=== PATIENT | male | born 1945 | race Caucasian/White ===

== ENCOUNTER 2017-01-11 19:38 | Inpatient (IN) ==
[2017-01-11] MEDS ORDERED: Ondansetron 4 MG/2 ML VIAL IVP ONE (19:50)
--- NOTE | 2017-01-11 19:56 | Emergency Department Note ---
Disposition Clinical Impression: Arm weakness Headache Qualifiers: Headache type: unspecified Headache chronicity pattern: acute headache Intractability: not intractable Qualified Code(s): R51 - Headache Disposition: Admitted As Inpatient Condition: Fair Neuro HPI - General Chief Complaint: ED Headache Stated Complaint: R arm weakness, HAUSER Time Seen by Provider: 01/11/17 19:41 Source: patient, family, EMS Mode of arrival: EMS Limitations: no limitations Nursing Notes Reviewed: Yes Vital Signs Reviewed: Yes - History of Present Illness HPI Narrative: 71-year-old male history of hypertension and possible strokes in the past present for evaluation of sudden onset headache and right arm weakness. Patient states that his last known well was approximately 4:30 or 5:00 this evening. Patient denies history of headaches in the past but does note that his headache occurred nonexertional. That is to be located in the back of his head. states that he did have some slurred speech. Patient notes some decreased sensation in his left lower leg to soft touch. Reports some dyspnea but no chest pain. Reports some nausea but no vomiting. states that the patient did have Motrin prior to arrival. Patient denies any weakness of his lower legs. Does note weakness in his right arm. Denies being on any anticoagulation. Denies any recent surgeries. Patient denies any history of headaches. [facility] [place] as well as [facility]. - Related Data Home Medications: Home Medications Medication Instructions Recorded Confirmed Brimonidine 0.2% [Alphagan] 1 drop RIGHT EYE TID 01/11/17 01/11/17 Carboxymethylcellulose Sodium 1 drop BOTH EYES QID PRN 01/11/17 01/11/17 [Refresh Liquigel] Cholecalciferol (D-3) [Vitamin D] 2,000 unit PO DAILY 01/11/17 01/11/17 Cyclobenzaprine HCl 5 mg PO HS PRN 01/11/17 01/11/17 Doxycycline Monohydrate [Mondoxyne 100 mg PO BID 01/11/17 01/11/17 Nl] Fluorouracil [Fluoroplex] 1 appl TP BID 01/11/17 01/11/17 Hydrocortisone 2.5% CREAM [Cortaid] 1 appl TP BID 01/11/17 01/11/17 Ketotifen Fumarate [Zaditor] 1 drop BOTH EYES BID 01/11/17 01/11/17 Lisinopril [Zestril] 10 mg PO DAILY 01/11/17 01/11/17 Naproxen [Naprosyn] 500 mg PO BID PRN 01/11/17 01/11/17 Neomycin Nagy/Bacitrac Zn/Poly 1 appl TP BID 01/11/17 01/11/17 [Triple Antibiotic Ointment] Quetiapine Fumarate [SEROquel] 75 mg PO HS 01/11/17 01/11/17 Vit C/E/Zn/Coppr/Lutein/Zeaxan 1 cap PO BIDWM 01/11/17 01/11/17 [Preservision Areds 2 Softgel] predniSONE [PredniSONE] See Taper PO TAPER 01/11/17 01/11/17 Allergies/Adverse Reactions: Allergies Allergy/AdvReac Type Severity Reaction Status Date / Time allopurinol Allergy Hives Verified 01/11/17 19:41 atenolol Allergy Hives Verified 01/11/17 19:41 All systems ED: reviewed and negative except as stated. Constitutional: Reports: as per HPI. Denies: fever Eyes: Reports: as per HPI ENT ED: Reports: as per HPI Cardiovascular: Reports: as per HPI. Denies: chest pain Respiratory: Reports: as per HPI. Denies: dyspnea Gastrointestinal: Reports: as per HPI, nausea. Denies: abdominal pain, vomiting Genitourinary: Reports: as per HPI Musculoskeletal: Reports: as per HPI Integumentary: Reports: as per HPI Neurological: Reports: as per HPI, headache Psychiatric: Reports: as per HPI Endocrine: Reports: as per HPI Hematological/Lymphatic: Reports: as per HPI Allergic/Immunologic: Reports: as per HPI Past Medical History - Past Medical History Medical history: Reports: hypertension Psychiatric history: Reports: PTSD, other - Social History Smoking Status: Former smoker Smokeless Tobacco Status: No Alcohol use: Reports: none Drug use: Reports: none Physical Exam - General Limitations: no limitations General appearance: alert, in no apparent distress - Head Head exam: atraumatic, normocephalic, normal inspection - Eye Eye exam: Present: normal appearance, PERRL, EOMI - ENT ENT exam: normal exam - Neck Neck exam: Present: normal inspection - Chest Chest inspection: Present: normal inspection, symmetric chest wall rise - Respiratory Respiratory exam: Present: normal lung sounds bilaterally. Absent: respiratory distress - Cardiovascular Cardiovascular exam: Present: regular rate, normal rhythm. Absent: systolic murmur - Abdominal Exam Abdominal exam: Present: soft, Non-Tender - Extremities Exam Extremities exam: Present: normal inspection. Absent: pedal edema - Expanded Upper Extremity Exam Shoulder exam: Present: normal inspection, full ROM Arm exam: Present: normal inspection, full ROM Forearm/Wrist exam: Present: normal inspection, full ROM Vascular exam: Normal: capillary refill, radial pulse - Expanded Lower Extremity Exam Hip/Pelvis exam: Present: normal inspection, full ROM Upper leg exam: Present: normal inspection, full ROM Knee exam: Present: normal inspection, full ROM - Back Exam Back exam: Present: normal inspection - Neurological Exam Neurological exam: Present: alert, oriented X3, CN II-XII intact - Expanded Neurological Exam Patient oriented to: Present: person, place, time Speech: Present: fluid speech Cranial nerves: EOM function (II, III, IV, ): Normal, facial sensation (V): Normal, facial palsy (VII): Normal, spinal accessory function (XI): Normal, tongue deviation (XII): Normal Cerebellar function: finger to nose: Normal, heel to robin: Normal Motor strength - LUE: 5/5 Motor strength - RUE: 4/5 Motor strength - LLE: 5/5 Motor strength - RLE: 5/5 Upper motor neuron exam: pronator drift: Absent bilaterally Sensory exam upper extremity: light touch: Normal Sensory exam lower extremity: light touch: Abnormal Left Coma Scale Eye Opening: Spontaneous Coma Scale Motor Response: Obeys Commands Coma Scale Verbal Response: Oriented Coma Scale Total: 15 - Skin Skin exam: Present: warm, dry, intact, normal color Course Course Narrative: Patient seen and examined. Patient's time of onset was approximately 4:30 or 5: 00 when he was last well. Patient did have a sudden onset of headache. Patient denies history of aneurysms but supposedly had subclinical CVAs in the past. Patient initial concern is subarachnoid hemorrhage are sudden onset. Patient's blood pressure systolic is 150s. Stroke alert was activated given time of onset and concerns for subarachnoid. Patient does have an age of 1 with subjective decreased sensory loss in his left leg. Patient also has asymmetric right upper extremity weakness. Disposition pending. - Consultations Consultation #1: Spoke with [facility] neurology. Continue workup for possible subarachnoid. CTA of the head. Patient is not a thrombolytic candidate agreeable by the Neurologist if there is concern for SAH. Also the patient NIH of 1. Time: 20:35 Vital Signs Temperature 98.1 F 01/11/17 19:42 Pulse Rate 96 01/11/17 19:42 Respiratory Rate 18 01/11/17 19:42 Blood Pressure 157/94 01/11/17 19:42 O2 Sat by Pulse Oximetry 95 01/11/17 19:42 Temperature 98.1 F 01/11/17 20:37 Pulse Rate 93 01/11/17 20:48 Respiratory Rate 16 01/11/17 20:48 Blood Pressure 137/90 01/11/17 20:48 O2 Sat by Pulse Oximetry 95 01/11/17 20:48 Oxygen Delivery Oxygen Delivery Room Air Neuro Symptoms/Deficit - MDM Narrative Medical decision making narrative: 71-year-old male with history of hypertension and remote strokes in the past presents for evaluation of headache as well as right arm weakness. Patient does have asymmetric right arm weakness and patient is right-hand dominant. Stroke alert was activated as there was concerns for subarachnoid. Time of onset was approximately 4:30 this evening. Notes to be a sudden onset of a headache. This is within a 6 hour time window. Patient also had some right arm weakness. CT of the head shows no acute abnormalities. Notes old infarcts. Patient's NIH is 1. NIH given to subjective left-sided sensory loss to soft touch. Patient does have a history of sciatic on the left leg as well. Spoke with [facility] neurology who agree that thrombolytics are not indicated if there is any concerns for subarachnoid. Given the patient's low NIH score. Recommend further neuro evaluation. This information was discussed with the patient bedside who agree with plan of care. Patient's blood pressure did improve from initial evaluation. Aspirin was not provided as there was concern for possible subarachnoid. Patient is agreeable with this plan of care. Spoke with the family as well as the hospitalist. - Lab Data Lab results reviewed: Yes I reviewed the patient's lab results. Result diagrams: 01/11/17 19:19 01/11/17 19:19 Lab Results 01/11/17 01/11/17 01/11/17 Range/Units 19:19 19:19 19:19 WBC 13.7 H (4.3-11.1) K/mcL RBC 5.66 H (4.19-5.50) M/mcL Hgb 16.2 (12.9-16.9) g/dL Hct 48.8 (37.5-50.1) % MCV 86.2 (83.0-100.0) fL MCH 28.6 (28.0-33.3) pg MCHC 33.2 (31.6-35.5) g/dL RDW 13.1 (11.5-14.5) % Plt Count 263 (140-400) K/mcL MPV 10.0 (9.4-12.4) fL Immature Gran % 0.4 (0-4) % Seg Neutrophils % 91.4 % Lymphocytes % 5.3 % Monocytes % 2.8 % Eosinophils % 0.0 % Basophils % 0.1 % Neutrophils # 12.5 H (1.6-8.9) K/mcL Lymphocytes # 0.7 (0.6-4.6) K/mcL Monocytes # 0.4 (0.0-1.3) K/mcL Eosinophils # 0.0 (0.0-0.6) K/mcL Basophils # 0.0 (0.0-0.2) K/mcL PT 13.2 H (9.4-12.1) Seconds INR 1.2 APTT 32.3 (26.0-36.0) Seconds Sodium 136 (136-145) mEq/L Potassium 4.4 (3.5-4.5) mEq/L Chloride 105 (98-109) mEq/L Carbon Dioxide 23 (19-29) mEq/L BUN 24 (8-26) mg/dL Creatinine 1.24 (0.72-1.25) mg/dL Est GFR ( Amer) > 60 (> 60) Est GFR (Non-Af Amer) 57 L (> 60) BUN/Creatinine Ratio 19 (6-26) Glucose 198 H (70-99) mg/dL Calculated Osmolality 292 (280-300) Calcium 9.6 (8.6-10.8) mg/dL Troponin I (0-0.03) ng/mL 01/11/17 Range/Units 19:19 WBC (4.3-11.1) K/mcL RBC (4.19-5.50) M/mcL Hgb (12.9-16.9) g/dL Hct (37.5-50.1) % MCV (83.0-100.0) fL MCH (28.0-33.3) pg MCHC (31.6-35.5) g/dL RDW (11.5-14.5) % Plt Count (140-400) K/mcL MPV (9.4-12.4) fL Immature Gran % (0-4) % Seg Neutrophils % % Lymphocytes % % Monocytes % % Eosinophils % % Basophils % % Neutrophils # (1.6-8.9) K/mcL Lymphocytes # (0.6-4.6) K/mcL Monocytes # (0.0-1.3) K/mcL Eosinophils # (0.0-0.6) K/mcL Basophils # (0.0-0.2) K/mcL PT (9.4-12.1) Seconds INR APTT (26.0-36.0) Seconds Sodium (136-145) mEq/L Potassium (3.5-4.5) mEq/L Chloride (98-109) mEq/L Carbon Dioxide (19-29) mEq/L BUN (8-26) mg/dL Creatinine (0.72-1.25) mg/dL Est GFR ( Amer) (> 60) Est GFR (Non-Af Amer) (> 60) BUN/Creatinine Ratio (6-26) Glucose (70-99) mg/dL Calculated Osmolality (280-300) Calcium (8.6-10.8) mg/dL Troponin I 0.00 (0-0.03) ng/mL - Radiology Data Radiology results reviewed: Yes I reviewed the patient's radiology results. Chest X-Ray 01/11/17 19:50 IMPRESSION: No acute cardiopulmonary disease. D/ / Shamir Crespo MD / Shamir Crespo MD Interpreting Provider: Shamir Crespo MD Head CT 01/11/17 19:50 IMPRESSION: Moderate chronic small vessel ischemic white matter disease. No acute intracranial abnormality. Findings were discussed with Antonio Iraheta at 8:16 pm on 01/11/2017. D/ / Sohail Finn MD / Sohail Finn MD Interpreting Provider: Sohail Finn MD - EKG Data EKG attestation: Yes I reviewed and interpreted this EKG. EKG shows normal: sinus rhythm Rate: normal Rhythm: NSR [place]/QRS: normal Q waves: aVR T wave inversions noted in: aVL, aVR Interpretation: no acute changes NIH Stroke Scale - Level of Consciousness LOC: Alert - LOC Questions LOC Questions: Answers both correctly - LOC Commands LOC Commands: Performs both correctly - Best Gaze Best Gaze: Normal - Visual Visual: No visual loss - Facial Palsy Facial Palsy: Normal - Motor Arms Motor Arm-Left: No drift for 10 seconds Motor Arm-Right: No drift for 10 seconds - Motor Legs Motor Leg-Left: No drift for 5 seconds Motor Leg-Right: No drift for 5 seconds TPA Checklist - Source Information Source: Patient - Eligibilty for IV tPA 2. Clinical diagnosis of ischemic stroke causing deficit: No 3. Age 18 years or older: Yes - Contraindications 4. Evidence of intracranial hemorrhage on pretreatment CT: No 5. Presentation suggests subarachnoid hem, even if CT normal: Yes 6. CT shows multilobar infarction: No 7. Known neoplasm, arteriovenous malformation, or aneurysm: No 8. Significant head trauma (w/ LOC) or CVA in last 3 months: No 9. BP elevated (systolic > 185 or diastolic > 110): No 10. Abnormal Blood Glucose (<50 or >400mg/dl): No 11. Active internal bleeding [PM.TPA15]: No 12. Known bleeding risk (including; not limited to 13-15): No 13. Heparin/argatroban/bivalirudin w/in 48hrs & PTT > normal: No 14. Platelet count less than 100,000/MM3: No 15. Current or recent use of anticoagualants (see protocol): No - Warnings/Precautions Considerations 16. Prior ischemic stroke within last 3 months: No 17. Recent history of intracranial hemorrhage: No 18. : No 19. Current/recent use Effient (7 days) or Brilinta (5 days): No 20. Arterial puncture at non compressible site or LP >7days: No 21. Major surgery or serious trauma in last 14 days: No 22. GI or urinary tract hemorrhage in last 21 days: No 23. PA involving left anterior myocardium in last 3 months: No 24. Suspected or known infective endocarditis/pericarditis: No - LKW: 3-4.5 hrs Add. Warnings/Precautions 25. oral anticoag other than warfarin regardles of last dose: No Critical Care Time Critical Care Time: Yes Total Critical Care Time: 35 Attestation: Critical care performed: Time is exclusive of separately billable procedures. Time includes: direct patient care, patient reassessment, coordination of patient care, interpretation of data (laboratory data, radiology data, and respiratory data), review of patient's medical records, medical consultation and documentation of patient care. Procedures included in critical care time: Procedures excluded from critical care time: Tahira - Tahira Situation: Demographics Background: Presenting Complaint Assessment: Vital Signs, Course and respsone to treatment Recommendation: Barrier(s) to disposition, Recommendation based on pending studies, treatments, or consults Tahira Report Given to: Dr. Shahram Hoffmann [facility] Time: 20:59 Attestation Statement - Attestation Attestation: I, Zach Limon MD, personally evaluated this patient and discussed their management with the resident physician. I reviewed the resident's note and agree with the documented findings, medical decision making, and plan of care. 71-year-old male presents to the emergency department from the [place] with a complaint of acute onset of headache and right arm weakness a little after 5 PM this afternoon. No difficulty with speech or swallowing. No blurred vision or double vision. No weakness in the right leg. He does complain of some pain and numbness in the left leg which is chronic secondary to sciatica. He has a history of questionable strokes in the past. No residual deficits. On examination patient is a well-developed well-nourished well-appearing elderly male in no acute distress. He is alert and oriented 3. There is no cyanosis or diaphoresis. Cranial nerves II through XII intact. There is mild weakness of his palliative senior np on the right. Neck supple and nontender with full range of motion. Chest is nontender to palpation. Breath sounds are clear and equal bilaterally. Heart regular rate and rhythm. Abdomen is soft and nontender with normal bowel sounds. Head CT shows no acute hemorrhage or other acute abnormality. Labs reviewed. No acute changes on EKG. A stroke alert was called and after evaluation by the [facility] neurologists it was felt the patient was not a candidate for TPA. The hospitalist, Dr. Omalley, was consulted and accepted admission of the patient.
[2017-01-11 20:04] LABS: Basophils % 0.1 %; Hematocrit 48.8 % (37.5-50.1); Hemoglobin 16.2 g/dL (12.9-16.9); Immature Granulocytes % 0.4 % (0-4); Lymphocytes # 0.7 K/mcL (0.6-4.6); Lymphocytes % 5.3 %; Mean Corpuscular HGB Conc 33.2 g/dL (31.6-35.5); Mean Corpuscular Hemoglobin 28.6 pg (28.0-33.3); Mean Corpuscular Volume 86.2 fL (83.0-100.0); Monocytes # 0.4 K/mcL (0.0-1.3); Monocytes % 2.8 %; Neutrophils # 12.5 K/mcL (1.6-8.9); Platelet Count 263 K/mcL (140-400); Red Blood Count 5.66 M/mcL (4.19-5.50); Red Cell Distribution Width 13.1 % (11.5-14.5); Segmented Neutrophils % 91.4 %
[2017-01-11] MEDS ORDERED: *HR* FentaNYL (PF) 100 MCG/2 ML VIAL IVP ONE (20:12)
[2017-01-11 20:13] LABS: INR 1.2; Prothrombin Time 13.2 Seconds (9.4-12.1)
[2017-01-11 20:15] LABS: Activated Partial Thrombo Time 32.3 Seconds (26.0-36.0)
[2017-01-11 20:17] LABS: BUN/Creatinine Ratio 19 (6-26); Blood Urea Nitrogen 24 mg/dL (8-26); Calcium 9.6 mg/dL (8.6-10.8); Carbon Dioxide 23 mEq/L (19-29); Chloride 105 mEq/L (98-109); Glucose 198 mg/dL (70-99); Osmolality,Calculated 292 (280-300); Potassium 4.4 mEq/L (3.5-4.5); Sodium 136 mEq/L (136-145); eGFR For African Americans > 60 (> 60); eGFR For Non-African Americans 57 (> 60)
--- NOTE | 2017-01-11 22:30 | Internal Med History&Physical ---
<CorneliusBlaise - Last Filed: 01/11/17 22:56> Date of Encounter: 01/11/17 Time of Encounter: 22:23 Assessment and Plan (1) TIA (transient ischemic attack) Current visit: Yes Status: Acute Symptoms started at 430 PM and his weakness is improving on exam; he does have recurrent similar episodes which may be exacerbated by his h/o anxiety He does have questionable history of TIAs and has evidence of chronic white matter disease on CT Will obtain old records from [place] as he states he has previous head CT/MRIs; no need to order MRI at this time Ordered echocardiogram, carotid US, TSH, folate, B12, lipids for further evaluation Start on ASA, Lipitor Consult PT/OT/SS Qualifiers: Qualified Code(s): G45.9 - Transient cerebral ischemic attack, unspecified (2) Headache Current visit: Yes Status: Chronic Headache likely occipital neuralgia vs. migraine; head CT negative for SAH Review old records as he has previous [facility] done [facility] Will control with analgesics, anti-emetics Qualifiers: Headache type: unspecified Headache chronicity pattern: acute headache Intractability: not intractable Qualified Code(s): R51 - Headache (3) Hypertension Current visit: Yes Status: Chronic Blood pressure stable upon admission We will continue home lisinopril Qualifiers: Hypertension type: essential hypertension Qualified Code(s): I10 - Essential (primary) hypertension (4) DVT prophylaxis Current visit: Yes Status: Acute Heparin 5000 units BID Internal Medicine - H&P: HPI Chief complaint: headache, right arm weakness Admitted From: Home Plans for Post Hospital Care: Home History of present illness: Mr. Palafox is a 71 year old male who was transported from the [place] with headache and right arm weakness. Patient states at 4:30 PM earlier tonight he experienced a sudden onset of headache that was posterior in location and radiated to the front of his head on both sides. He also reports left leg numbness but states that this is chronic for him due to sciatica. He also had moderate shortness of breath and chest tightness that was worse with exertion. He also reports nausea but did not have any vomiting. Patient denied any loss of consciousness, fevers or chills, urinary complaints, diarrhea. He denied that this was the worst headache of his life, but states that he has had recurrent headaches for the past few months which was associated with blurry vision and right arm weakness. He states the headaches are worsened with both light and sound. He has been evaluated by a neurologist with head imaging, but there was no obvious etiology found. He has never been formally diagnosed with migraines, and there is questionable history of previous TIAs. Patient lives with his and at baseline is very independent in activities of daily life. 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 Of note, patient was recently started on doxycycline for a left finger infection. He was also given a steroid shot and put on a prednisone taper recently for his sciatica. Past Med Surg Social Fam HX - Past Medical History Medical history: hypertension Psychiatric history: PTSD, other - Social History Smoking Status: Former smoker Smokeless Tobacco Status: No Alcohol use: none Drug use: none Internal Medicine - H&P: Meds Brimonidine 0.2% [Alphagan] 1 drop RIGHT EYE TID 01/11/17 [History] Carboxymethylcellulose Sodium [Refresh Liquigel] 1 drop BOTH EYES QID PRN [History] Cholecalciferol (D-3) [Vitamin D] 2,000 unit PO DAILY 01/11/17 [History] Cyclobenzaprine HCl 5 mg PO HS PRN 01/11/17 [History] Doxycycline Monohydrate [Mondoxyne Nl] 100 mg PO BID 01/11/17 [History] Fluorouracil [Fluoroplex] 1 appl TP BID 01/11/17 [History] Hydrocortisone 2.5% CREAM [Cortaid] 1 appl TP BID 01/11/17 [History] Ketotifen Fumarate [Zaditor] 1 drop BOTH EYES BID 01/11/17 [History] Lisinopril [Zestril] 10 mg PO DAILY 01/11/17 [History] Naproxen [Naprosyn] 500 mg PO BID PRN 01/11/17 [History] Neomycin Nagy/Bacitrac Zn/Poly [Triple Antibiotic Ointment] 1 appl TP BID [History] Quetiapine Fumarate [SEROquel] 75 mg PO HS 01/11/17 [History] Vit C/E/Zn/Coppr/Lutein/Zeaxan [Preservision Areds 2 Softgel] 1 cap PO BIDWM [History] predniSONE [PredniSONE] See Taper PO TAPER 01/11/17 [History] Allergies allopurinol Allergy (Verified 01/11/17 19:41) Hives atenolol Allergy (Verified 01/11/17 19:41) Hives All Systems PM: A 10-system review of systems was performed and is negative for pertinent findings except as documented above in the HPI. - Constitutional Constitutional: chills, no fever(s), no night sweats - EENT Eyes: blurry vision, no change in vision, no discharge, no pain, no photophobia Ears: no ear discharge, no ear pain, no tinnitus Nose, mouth and throat: no dysphagia, no nasal discharge, no neck pain, no sore throat - Cardiovascular Cardiovascular ROS IM: chest pain (tightness), lightheadedness, no diaphoresis, no dyspnea, no palpitations, no syncope - Respiratory Respiratory: cough, no dyspnea, no wheezing, no excessive phlegm production, no change in phlegm color, no pain with cough - Gastrointestinal Gastrointestinal: nausea, no abdominal pain, no diarrhea, no hematemesis, no hematochezia, no melena, no vomiting - Musculoskeletal Musculoskeletal ROS IM: as per HPI, no numbness, no tingling - Integumentary Integumentary IM: no rash, no unusual bruising - Neurological Neurological ROS: focal weakness, headache(s), numbness, weakness, no abnormal speech, no confusion, no convulsions, no frequent falls, no lack of coordination , no tingling, no tremor(s) - Psychiatric Psychiatric: anxiety - Constitutional Vitals: Temp Pulse Resp BP Pulse Ox 97.6 F 84 18 152/83 94 01/11/17 21:53 01/11/17 21:53 01/11/17 21:53 01/11/17 21:53 01/11/17 21:53 General appearance: Present: cooperative, pleasant, no acute distress, obese, answers questions appropriately - Head Head exam: Present: atraumatic, normocephalic - Eye Eye exam: Present: EOMI, PERRL, conjuntiva pink, sclera anicteric - Neck Neck exam general surgery: Present: supple, trachea midline. Absent: lymphadenopathy - Respiratory Respiratory exam: Present: CTAB. Absent: accessory muscle use, rales, rhonchi, wheezes - Cardiovascular Cardiovascular exam: Present: RRR, +S1, +S2. Absent: diastolic murmur, gallop, rubs, systolic murmur - GI/Abdominal GI/Abdominal exam: Present: normal bowel sounds, soft, no peritoneal signs. Absent: distended, tenderness - Extremities Exam Extremities exam: Present: warm, radial pulses palpable and symetrical. Absent : calf tenderness, cyanotic, pedal edema - Neurological Exam Neurological exam: Present: alert, CN II-XII intact, oriented X3, no focal deficits, strengths equal and symetr throughout. Absent: pronater drift, facial droop, speech deficit - Skin Skin exam: Present: dry, intact Internal Med - H&P Results - Labs CBC & Chem 7: 01/11/17 19:19 01/11/17 19:19 <Jeff-Anibal Faulkner - Last Filed: 01/12/17 01:17> Date of Encounter: 01/12/17 Internal Medicine - H&P: HPI History of present illness: Mr. Palafox is a 71 year old male All Systems PM: A 10-system review of systems was performed and is negative for pertinent findings except as documented above in the HPI. - Constitutional Vitals: Temp Pulse Resp BP Pulse Ox 97.6 F 84 18 152/83 94 01/11/17 21:53 01/11/17 21:53 01/11/17 21:53 01/11/17 21:53 01/11/17 23:00 Internal Med - H&P Results - Labs CBC & Chem 7: 01/11/17 19:19 01/11/17 19:19 - Attending Attestation I have seen and examined the patient. I discussed outpatient with . I reviewed the orders in the note. Patient is a 71-year-old male with a past history of hypertension and TIA. Patient presents to the ED with complaints of headache vital weakness. Symptoms started at around 4:30 in the evening. Was initially stable patient did have some slurred speech as well. He had some numbness and left lower leg. [facility] then [facility] to our facility. Initial workup including CT head did not show any acute intracranial abnormality , there is chronic small vessel ischemic disease. EKG shows normal sinus rhythm. Chest x-ray is negative for any acute process. Patient is being admitted for TIA. He will be on aspirin and statin. Previous records from the [place] will be obtained. Patient apparently had a recent MRI as well. Echocardiogram and ultrasound of the carotids pending. Patient explained about his condition and plan of care. Understood and agreed. No unanswered questions. CODE STATUS full code.
[2017-01-11] MEDS ORDERED: Acetaminophen 325 MG TABLET PO PRN (22:48)
[2017-01-11] MEDS ORDERED: Ondansetron ODT 4 MG TAB.RAPDIS SL PRN (22:48)
[2017-01-11] MEDS ORDERED: Naloxone 0.4 MG/ML INJ IVP PRN (22:48)
[2017-01-11] MEDS ORDERED: Aspirin 325 MG TABLET PO ONE (22:48)
[2017-01-12 05:03] LABS: Basophils % 0.1 %; Hematocrit 45.3 % (37.5-50.1); Hemoglobin 15.2 g/dL (12.9-16.9); Immature Granulocytes % 0.3 % (0-4); Lymphocytes # 1.3 K/mcL (0.6-4.6); Lymphocytes % 10.5 %; Mean Corpuscular HGB Conc 33.6 g/dL (31.6-35.5); Mean Corpuscular Hemoglobin 29.2 pg (28.0-33.3); Mean Corpuscular Volume 86.9 fL (83.0-100.0); Mean Platelet Volume 10.6 fL (9.4-12.4); Monocytes % 7.7 %; Neutrophils # 10.2 K/mcL (1.6-8.9); Platelet Count 256 K/mcL (140-400); Red Blood Count 5.21 M/mcL (4.19-5.50); Red Cell Distribution Width 13.2 % (11.5-14.5); Segmented Neutrophils % 81.4 %
[2017-01-12 05:14] LABS: Hemoglobin A1C 5.9 %
[2017-01-12 05:18] LABS: BUN/Creatinine Ratio 23 (6-26); Blood Urea Nitrogen 25 mg/dL (8-26); Calcium 9.1 mg/dL (8.6-10.8); Carbon Dioxide 26 mEq/L (19-29); Chloride 106 mEq/L (98-109); Chol/HDL Ratio 4.7 (0-4.9); Cholesterol 178 mg/dL (< 200); Glucose 158 mg/dL (70-99); HDL Cholesterol 38 mg/dL (40-59); LDL Cholesterol,Calculated 124 mg/dL (0-99); Osmolality,Calculated 294 (280-300); Potassium 4.1 mEq/L (3.5-4.5); Sodium 138 mEq/L (136-145); Triglycerides 80 mg/dL (< 150); eGFR For African Americans > 60 (> 60); eGFR For Non-African Americans > 60 (> 60)
[2017-01-12 05:53] LABS: Folate 11.7 ng/mL (7.0-31.4)
[2017-01-12] MEDS: *HR* Heparin 5,000 UNIT/ML VIAL SQ SCH ×2 (06:01→18:17)
[2017-01-12] MEDS: Cholecalciferol (D-3) 1,000 UNIT TABLET PO SCH (07:53)
[2017-01-12] MEDS: Doxycycline 100 MG CAPSULE PO SCH ×2 (07:53→22:01)
[2017-01-12] MEDS: Aspirin 81 MG TAB.CHEW PO SCH (07:53)
[2017-01-12] MEDS: Neosporin OINT 15 GM TUBE TP SCH ×2 (07:58→22:03)
[2017-01-12] MEDS: Artificial Tears SOLN 15 ML BOTTLE BOTH EYES PRN (08:00)
[2017-01-12] MEDS: FLUOROURACIL APPL TP SCH ×2 (08:11→22:04)
--- NOTE | 2017-01-12 08:29 | Internal Med Progress Note ---
<Shamir Blackwell - Last Filed: 01/12/17 15:16> Date of Encounter: 01/12/17 Time of Encounter: 08:28 - Assessment and plan (1) TIA (transient ischemic attack) Current Visit: Yes Status: Acute Assessment and plan: Symptoms started at 430 PM and his weakness is improving on exam; he does have recurrent similar episodes which may be exacerbated by his h/o anxiety He does have questionable history of TIAs and has evidence of chronic white matter disease on CT Will obtain old records from [place] as he states he has previous head CT/MRIs; no need to order MRI at this time MRI negative Start enteric coated ASA, Lipitor Consult PT/OT/SS Echocardiogram, carotid U/S pending If greater than 70% carotid stenosis will consult vascular surgery Otherwise, hopefully discharge tomorrow and follow up outpatient with PCP in 1- 2 weeks Qualifiers: Qualified Code(s): G45.9 - Transient cerebral ischemic attack, unspecified (2) Headache Current Visit: Yes Status: Chronic Assessment and plan: Headache likely occipital neuralgia vs. migraine; head CT negative for SAH Reviewed old records as he has previous MRI/CTs done at the [place] Will control with analgesics, anti-emetics Qualifiers: Headache type: unspecified Headache chronicity pattern: acute headache Intractability: not intractable Qualified Code(s): R51 - Headache (3) Hyperlipidemia Current Visit: Yes Status: Acute Assessment and plan: Continue simvastatin 40 mg daily Qualifiers: Hyperlipidemia type: unspecified Qualified Code(s): E78.5 - Hyperlipidemia , unspecified (4) Hypertension Current Visit: Yes Status: Chronic Assessment and plan: Blood pressure stable upon admission Continue home lisinopril Qualifiers: Hypertension type: essential hypertension Qualified Code(s): I10 - Essential (primary) hypertension (5) Obesity (BMI 30-39.9) Current Visit: Yes Status: Acute Assessment and plan: Diet and exercise discussed (6) Hyperglycemia Current Visit: Yes Status: Acute Assessment and plan: Elevated blood glucose with hemoglobin A1c 5.9 Patient agrees to diet modification and exercise this time Will follow-up with PCP (7) DVT prophylaxis Current Visit: Yes Status: Acute Assessment and plan: Heparin Patient seen and examined, plan discussed with and agreed upon with Dr. Mae - Subjective Interval history: Patient resting comfortably in bed. Patient denies any new complaints. Patient reports undergoing a left sided neck tenderness, and right arm tingling. - Constitutional Vitals: Temp Pulse Resp BP Pulse Ox 97.5 F L 62 16 117/68 93 01/12/17 07:24 01/12/17 07:24 01/12/17 07:24 01/12/17 07:24 01/12/17 07:24 General appearance: Present: cooperative, A&O X 3, pleasant, no acute distress, obese, answers questions appropriately - Head Head exam: Present: atraumatic, normocephalic - Eye Eye exam: Present: PERRL, conjuntiva pink, sclera anicteric Pupils: Present: PERRL - ENT ENT exam: Present: mucous membranes moist, normal exam, normal oropharynx - Neck Neck exam general surgery: Present: tenderness (Left paraspinal tenderness in C- spine, range of motion intact), supple, trachea midline. Absent: lymphadenopathy Additional comments: No Carotid bruits - Respiratory Respiratory exam: Present: CTAB. Absent: accessory muscle use, rales, rhonchi, wheezes - Cardiovascular Cardiovascular exam: Present: RRR, +S1, +S2. Absent: diastolic murmur, gallop, rubs, systolic murmur - GI/Abdominal GI/Abdominal exam: Present: normal bowel sounds, soft, no peritoneal signs. Absent: distended, tenderness - Extremities Exam Extremities exam: Present: warm, radial pulses palpable and symetrical. Absent : calf tenderness, cyanotic, pedal edema - Neurological Exam Neurological exam: Present: CN II-XII intact, oriented X3, no focal deficits. Absent: pronater drift, facial droop, speech deficit - Psychiatric Psychiatric exam: Present: normal affect, normal mood - Skin Skin exam: Present: dry, intact Internal Medicine: Result - Labs CBC & Chem 7: 01/12/17 04:19 01/12/17 04:19 Labs: Short CBC 01/12/17 Range/Units 04:19 WBC 12.5 H (4.3-11.1) K/mcL Hgb 15.2 (12.9-16.9) g/dL Hct 45.3 (37.5-50.1) % Plt Count 256 (140-400) K/mcL Neutrophils # 10.2 H (1.6-8.9) K/mcL BMP 01/12/17 04:19 Sodium 138 Potassium 4.1 Chloride 106 Carbon Dioxide 26 BUN 25 Creatinine 1.11 Glucose 158 H Calcium 9.1 - ABG Interpretation ABG results: PT/INR, D-dimer PT 13.2 Seconds (9.4-12.1) H 01/11/17 19:19 Consult Discharge Plan - Plan [facility]errals: [facility]Primary Care Provider[facility] - Prescriptions: Aspirin Enteric Coated [Aspirin EC] 81 mg PO DAILY #30 tablet.Sarmad Zhao P - Last Filed: 01/12/17 17:23> Date of Encounter: 01/12/17 - Constitutional Vitals: Temp Pulse Resp BP Pulse Ox 97.6 F 64 16 145/80 94 01/12/17 15:13 01/12/17 15:13 01/12/17 15:13 01/12/17 15:13 01/12/17 15:13 Internal Medicine: Result - Labs CBC & Chem 7: 01/12/17 04:19 01/12/17 04:19 Labs: Short CBC 01/12/17 Range/Units 04:19 WBC 12.5 H (4.3-11.1) K/mcL Hgb 15.2 (12.9-16.9) g/dL Hct 45.3 (37.5-50.1) % Plt Count 256 (140-400) K/mcL Neutrophils # 10.2 H (1.6-8.9) K/mcL BMP 01/12/17 04:19 Sodium 138 Potassium 4.1 Chloride 106 Carbon Dioxide 26 BUN 25 Creatinine 1.11 Glucose 158 H Calcium 9.1 - ABG Interpretation ABG results: PT/INR, D-dimer PT 13.2 Seconds (9.4-12.1) H 01/11/17 19:19 - Impressions Impressions Brain MRI 01/12/17 07:08 IMPRESSION: No acute intracranial abnormality. Mild parenchymal volume loss. Moderate to severe chronic microvascular disease. D/ / William Gustafson MD / William Gustafson MD Interpreting Provider: William Gustafson MD - Attending Attestation I examined this patient and my medical decision-making was reviewed with the Resident Physician. I agree with the documented findings, disposition and treatment plan as described except to the extent set forth below. likely home tomorrow
[2017-01-12] MEDS: (Preservision Areds 2) PO SCH ×2 (11:24→15:37)
[2017-01-12] MEDS: (Ketotifen Fumarate [Zaditor] 1 DROP) OP SCH ×2 (11:25→22:05)
--- NOTE | 2017-01-12 12:27 | Electrocardiograph Report ---
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
--- NOTE | 2017-01-12 16:13 | Carotid Imaging Report ---
Carotid Duplex Patient Name:Chava Palafox Order Number:[id number] Procedure Date:01/12/2017 Date:1945ge:71 yrs Gender:Male Location:[facility] OP Room #: Legal Transcriber:Blair James, RDCS Referring MD:Blaise Shields DO technology services manager:[facility] Yan MD:Hipolito Le MD , FACS Primary Indications:TIA Risk Factors Yes/No Hypertension Yes Hx of TIA Yes Impressions: Findings: Bilateral carotid systems are essentially normal. Recommendations: After imaging the patient returned to their room. Findings Carotid Duplex: Ybarra scale imaging combined with Doppler flow analysis suggests normal findings bilaterally. Right: The right proximal common carotid artery has a PSV of 91 cm/s and a EDV of 20 cm/s. The right mid common carotid artery has a PSV of 96 cm/s and a EDV of 26 cm/s. The right distal common carotid artery has a PSV of 99 cm/s and a EDV of 25 cm/s. The right bifurcation has a PSV of 76 cm/s and a EDV of 19 cm/s. The right proximal internal carotid artery has a PSV of 60 cm/s and a EDV of 20 cm/s. The right mid internal carotid artery has a PSV of 71 cm/s and a EDV of 31 cm/s. The right distal internal carotid artery has a PSV of 64 cm/s and a EDV of 25 cm/s. The right eca has a PSV of 83 cm/s and a EDV of 8 cm/s. The right vertebral artery has a PSV of 25 cm/s and a EDV of 10 cm/s. Left: The left proximal common carotid artery has a PSV of 139 cm/s and a EDV of 32 cm/s. The left mid common carotid artery has a PSV of 110 cm/s and a EDV of 32 cm/s. The left distal common carotid artery has a PSV of 104 cm/s and a EDV of 28 cm/s. The left bifurcation has a PSV of 62 cm/s and a EDV of 13 cm/s. The left proximal internal carotid artery has a PSV of 70 cm/s and a EDV of 27 cm/s. The left mid internal carotid artery has a PSV of 91 cm/s and a EDV of 41 cm/s. The left distal internal carotid artery has a PSV of 82 cm/s and a EDV of 33 cm/s. The left eca has a PSV of 86 cm/s and a EDV of 13 cm/s. The left vertebral artery has a PSV of 25 cm/s and a EDV of 10 cm/s. Prior Study: No prior study available for comparison. Carotid Results Right PSV EDV Assessment Proximal CCA 91 20 Normal Mid CCA 96 26 Normal Distal CCA 99 25 Normal Bifurcation 76 19 Normal Proximal ICA 60 20 Normal Mid ICA 71 31 Normal Distal ICA 64 25 Normal ECA 83 8 Normal Vertebral Artery 25 10 Normal Left PSV EDV Assessment Proximal CCA 139 32 Normal Mid CCA 110 32 Normal Distal CCA 104 28 Normal Bifurcation 62 13 Normal Proximal ICA 70 27 Normal Mid ICA 91 41 Normal Distal ICA 82 33 Normal ECA 86 13 Normal Vertebral Artery 25 10 Normal Ratio's Right ICA/CCA Ratio: 0.74 ICA/CCA Values: 71/96 Left ICA/CCA Ratio: 0.83 ICA/CCA Values: 91/110 Updated by Hipolito Le MD, FACS on 01/12/2017 4:07:19 PM Hipolito Le MD electronically signed on 01/12/2017 4:07:36 PM with status of Final
[2017-01-13] MEDS: *HR* Heparin 5,000 UNIT/ML VIAL SQ SCH (05:20)
[2017-01-13 05:40] LABS: Hematocrit 46.5 % (37.5-50.1); Hemoglobin 14.8 g/dL (12.9-16.9); Mean Corpuscular HGB Conc 31.8 g/dL (31.6-35.5); Mean Corpuscular Hemoglobin 28.2 pg (28.0-33.3); Mean Corpuscular Volume 88.6 fL (83.0-100.0); Mean Platelet Volume 10.3 fL (9.4-12.4); Platelet Count 220 K/mcL (140-400); Red Blood Count 5.25 M/mcL (4.19-5.50); Red Cell Distribution Width 13.4 % (11.5-14.5)
[2017-01-13 05:59] LABS: BUN/Creatinine Ratio 16 (6-26); Blood Urea Nitrogen 21 mg/dL (8-26); Calcium 8.6 mg/dL (8.6-10.8); Carbon Dioxide 28 mEq/L (19-29); Chloride 104 mEq/L (98-109); Glucose 111 mg/dL (70-99); Osmolality,Calculated 290 (280-300); Potassium 4.2 mEq/L (3.5-4.5); Sodium 138 mEq/L (136-145); eGFR For African Americans > 60 (> 60); eGFR For Non-African Americans 54 (> 60)
[2017-01-13] MEDS: Cholecalciferol (D-3) 1,000 UNIT TABLET PO SCH (08:00)
[2017-01-13] MEDS: Doxycycline 100 MG CAPSULE PO SCH (08:00)
[2017-01-13] MEDS: Aspirin 81 MG TAB.CHEW PO SCH (08:01)
[2017-01-13] MEDS: Neosporin OINT 15 GM TUBE TP SCH (08:01)
[2017-01-13] MEDS: Artificial Tears SOLN 15 ML BOTTLE BOTH EYES PRN (08:01)
[2017-01-13] MEDS: FLUOROURACIL APPL TP SCH (08:02)
[2017-01-13] MEDS: (Ketotifen Fumarate [Zaditor] 1 DROP) OP SCH (08:02)
[2017-01-13] MEDS: (Preservision Areds 2) PO SCH (11:18)
[2017-01-13 11:45] VITALS: BP 134/85
--- NOTE | 2017-01-13 11:57 | Discharge Summary ---
Date of Encounter: 01/13/17 Time of Encounter: 11:53 - Discharge Diagnosis (1) TIA (transient ischemic attack) Priority: Primary Status: Acute Qualifiers: Transient cerebral ischemia type: unspecified Qualified Code(s): G45.9 - Transient cerebral ischemic attack, unspecified (2) Hypertension Priority: Secondary Status: Chronic Qualifiers: Hypertension type: essential hypertension Qualified Code(s): I10 - Essential (primary) hypertension (3) Obesity (BMI 30-39.9) Priority: Secondary Status: Acute (4) Hyperlipidemia Priority: Secondary Status: Acute Qualifiers: Hyperlipidemia type: unspecified Qualified Code(s): E78.5 - Hyperlipidemia , unspecified (5) Hyperglycemia Priority: Secondary Status: Acute - Discharge Medications Prescriptions: Aspirin Enteric Coated [Aspirin EC] 81 mg PO DAILY #30 tablet.dr Cruz Medications: Brimonidine 0.2% [Alphagan] 1 drop RIGHT EYE TID 01/11/17 [History] Carboxymethylcellulose Sodium [Refresh Liquigel] 1 drop BOTH EYES QID PRN [History] Cholecalciferol (D-3) [Vitamin D] 2,000 unit PO DAILY 01/11/17 [History] Cyclobenzaprine HCl 5 mg PO HS PRN 01/11/17 [History] Doxycycline Monohydrate [Mondoxyne Nl] 100 mg PO BID 01/11/17 [History] Fluorouracil [Fluoroplex] 1 appl TP BID 01/11/17 [History] Hydrocortisone 2.5% CREAM [Cortaid] 1 appl TP BID 01/11/17 [History] Ketotifen Fumarate [Zaditor] 1 drop BOTH EYES BID 01/11/17 [History] Lisinopril [Zestril] 10 mg PO DAILY 01/11/17 [History] Neomycin Nagy/Bacitrac Zn/Poly [Triple Antibiotic Ointment] 1 appl TP BID [History] Quetiapine Fumarate [Seroquel] 75 mg PO HS 01/11/17 [History] Vit C/E/Zn/Coppr/Lutein/Zeaxan [Preservision Areds 2 Softgel] 1 cap PO BIDWM [History] predniSONE [PredniSONE] See Taper PO TAPER 01/11/17 [History] Aspirin Enteric Coated [Aspirin EC] 81 mg PO DAILY #30 tablet. 01/12/17 [Rx] Aspirin 81 mg PO DAILY 01/13/17 [Rx] Brimonidine 0.2% [Alphagan] 1 drop RIGHT EYE TID bottle 01/13/17 [Rx] Simvastatin [Zocor] 40 mg PO HS tab 01/13/17 [Rx] Allergies/Adverse Reactions: Allergies allopurinol Allergy (Verified 01/11/17 19:41) Hives atenolol Allergy (Verified 01/11/17 19:41) Hives Procedures/tests Complete & Pending: Procedures Performed prior 72 hours Category Date Time Status MR head/brain wo con [MR] Routine MRI 01/12/17 07:08 Completed EV carotid duplex imaging BI Routine Y 01/12/17 22:48 Completed EV echocardiogram Routine Y 01/12/17 22:48 Completed Date of admission: 01/11/17 21:18 [facility] physician: [facility] Consults: 01/11/17 22:50 Consult to Occupational Therapy [CONS] Routine Comment: Evaluate, develop and implement POC Reason for Consult: TIA, may need home health/rehab upon discharge Consult to Physical Therapy [CONS] Routine Comment: Evaluate, develop and implement POC Reason for Consult: TIA, may need home health/rehab upon discharge Consult to Resistance Brazer [CONS] Routine Reason for SW Consult: TIA, may need home health/rehab upon discharge Discharging clinician: Sarmad Mae - Patient Status Disposition: Home, Self-Care Condition: Fair Functional capacity at discharge: uses cane/walker Overall status at discharge: patient is progressing back to baseline - Discharge Instructions Follow Up With: [facility] [Primary Care Provider[facility] - (Call for follow up appointment with PCP. ) - Diet and Activity Activity: as per physical therapy, increase activity as tolerated Diet: diabetic diet, low fat, low cholesterol, low salt diet Interval History: Mr. Palafox is a 71 year old male who was transported from the [place] with headache and right arm weakness. Patient states at 4:30 PM earlier tonight he experienced a sudden onset of headache that was posterior in location and radiated to the front of his head on both sides. He also reports left leg numbness but states that this is chronic for him due to sciatica. He also had moderate shortness of breath and chest tightness that was worse with exertion. He also reports nausea but did not have any vomiting. Patient denied any loss of consciousness, fevers or chills, urinary complaints, diarrhea. He denied that this was the worst headache of his life, but states that he has had recurrent headaches for the past few months which was associated with blurry vision and right arm weakness. He states the headaches are worsened with both light and sound. He has been evaluated by a neurologist with head imaging, but there was no obvious etiology found. He has never been formally diagnosed with migraines, and there is questionable history of previous TIAs. Patient lives with his and at baseline is very independent in activities of daily life. 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 Of note, patient was recently started on doxycycline for a left finger infection. He was also given a steroid shot and put on a prednisone taper recently for his sciatica. Hospital course: Patient was hospitalized. NIH stroke scale monitoring was started. Patient was closely observed. Echocardiogram: Ejection fraction 55%. CT head: No acute intracranial event. MRI head: No acute intracranial infarction. Ultrasound carotid: Nonobstructive lesion. Patient was evaluated by physical therapy/occupational therapy. Patient is back to his baseline. Patient is keen to go home. Plan: Patient can go home today. [facility] All questions answered. - Time Spent with Patient Total time spent providing and/or coordinating discharge services: - Constitutional Vitals: Temp Pulse Resp BP Pulse Ox 97.7 F 59 16 134/85 95 01/13/17 11:43 01/13/17 11:43 01/13/17 11:43 01/13/17 11:43 01/13/17 11:43 General appearance: Present: cooperative, A&O X 3, pleasant, no acute distress, obese, answers questions appropriately - Head Head exam: Present: atraumatic, normocephalic - Eye Eye exam: Present: PERRL, conjuntiva pink, sclera anicteric Pupils: Present: PERRL - Neck Neck exam general surgery: Present: supple, trachea midline. Absent: lymphadenopathy - Respiratory Respiratory exam: Present: CTAB. Absent: accessory muscle use, rales, rhonchi, wheezes - Cardiovascular Cardiovascular exam: Present: RRR, +S1, +S2. Absent: diastolic murmur, gallop, rubs, systolic murmur - GI/Abdominal GI/Abdominal exam: Present: normal bowel sounds, soft, no peritoneal signs. Absent: distended, tenderness - Extremities Exam Extremities exam: Present: warm, radial pulses palpable and symetrical. Absent : calf tenderness, cyanotic, pedal edema - Neurological Exam Neurological exam: Present: CN II-XII intact, oriented X3, no focal deficits. Absent: pronater drift, facial droop, speech deficit - Skin Skin exam: Present: dry, intact
== END 2017-01-13 13:00 | disposition home or self-care (01) | DRG 69 ==
LOC: 3BNU 19:38 → EMEROO 19:38 → OBSVTOIN 21:18 → 3BNU 21:38
PROVIDERS: ADMIT Family Medicine; ATTEND Registered Nurse

== ENCOUNTER 2022-01-13 10:52 | Inpatient (IN) ==
[2022-01-13] MEDS ORDERED: cefOXitin 2,000 MG in 0.9 % Sodium Chloride 20 ML IVP ONE (11:07)
[2022-01-13] MEDS ORDERED: Ringers Solution, Lactated 1,000 ML IVC SCH (11:15)
[2022-01-13] MEDS ORDERED: *HR* OxyCODONE Immed Rel 5 MG TABLET PO PRN (12:34)
[2022-01-13] MEDS ORDERED: *HR* Labetalol 20 MG/4 ML SYRINGE IVP PRN (12:34)
[2022-01-13] MEDS ORDERED: *HR* HYDROmorphone 2 MG TABLET PO PRN (12:34)
[2022-01-13] MEDS ORDERED: Ondansetron 4 MG/2 ML VIAL IVP PRN (12:34)
[2022-01-13] MEDS ORDERED: *HR* HYDROmorphone (PF) 1 MG/ML SYRINGE IVP PRN (12:34)
[2022-01-13] MEDS ORDERED: Famotidine 20 MG/2 ML VIAL IVP ONE (12:34)
[2022-01-13] MEDS ORDERED: Acetaminophen IV 1,000 MG/100 ML BAG IVPB ONE (12:34)
[2022-01-13] MEDS ORDERED: Ondansetron 4 MG/2 ML VIAL ONE (13:05)
[2022-01-13] MEDS ORDERED: *HR* Rocuronium Bromide 50 MG/5 ML VIAL ONE (13:05)
[2022-01-13] MEDS ORDERED: Lidocaine -MPF 2% 5 ML VIAL ONE ×2 (13:05→15:20)
[2022-01-13] MEDS ORDERED: *HR* FentaNYL (PF) 100 MCG/2 ML VIAL ONE (13:06)
[2022-01-13] MEDS ORDERED: *HR* HYDROMORPHONE 2 MG/ML VIAL ONE (15:59)
[2022-01-13] MEDS ORDERED: *HR* Labetalol 20 MG/4 ML SYRINGE IVP ONE (17:06)
[2022-01-13] MEDS: Acetaminophen IV 1,000 MG/100 ML BAG IVPB SCH (19:52)
[2022-01-13] MEDS: Piperacillin/Tazobactam 3.375 GM in 0.9 % Sodium Chloride Mini Bag 100 ML IVPB SCH (20:00)
[2022-01-13] MEDS: 0.9 % Sodium Chloride 1,000 ML IVC SCH (20:00)
[2022-01-13 20:07] LABS: Basophils % 0.2 %; Hematocrit 48.3 % (37.5-50.1); Hemoglobin 15.9 g/dL (12.9-16.9); Immature Granulocytes % 0.3 % (0-4); Lymphocytes # 0.5 K/mcL (0.6-4.6); Lymphocytes % 3.2 %; Mean Corpuscular HGB Conc 32.9 g/dL (31.6-35.5); Mean Corpuscular Hemoglobin 29.2 pg (28.0-33.3); Mean Corpuscular Volume 88.6 fL (83.0-100.0); Mean Platelet Volume 9.7 fL (9.4-12.4); Monocytes # 0.4 K/mcL (0.0-1.3); Monocytes % 2.7 %; Neutrophils # 13.9 K/mcL (1.6-8.9); Platelet Count 236 K/mcL (140-400); Red Blood Count 5.45 M/mcL (4.19-5.50); Red Cell Distribution Width 13.4 % (11.5-14.5); Segmented Neutrophils % 93.6 %; White Blood Count 14.8 K/mcL (4.3-11.1)
[2022-01-13 20:25] LABS: BUN/Creatinine Ratio 13 (6-26); Blood Urea Nitrogen 15 mg/dL (8-23); Calcium 8.6 mg/dL (8.6-10.3); Carbon Dioxide 21 mEq/L (23-29); Chloride 102 mEq/L (98-107); Glucose 177 mg/dL (70-105); Magnesium 1.6 mg/dL (1.6-2.6); Osmolality,Calculated 283 (280-300); Phosphorous 2.8 mg/dL (2.7-4.5); Potassium 4.1 mEq/L (3.5-5.1); Sodium 134 mEq/L (136-145); eGFR For African Americans > 60 (> 60); eGFR For Non-African Americans > 60 (> 60)
[2022-01-13] MEDS: Ondansetron 4 MG/2 ML VIAL IVP PRN (20:52)
[2022-01-14] MEDS: Acetaminophen IV 1,000 MG/100 ML BAG IVPB SCH ×4 (01:20→19:16)
[2022-01-14 03:04] LABS: Basophils % 0.1 %; Hematocrit 46.6 % (37.5-50.1); Hemoglobin 15.4 g/dL (12.9-16.9); Immature Granulocytes % 0.4 % (0-4); Lymphocytes % 4.4 %; Mean Corpuscular Hemoglobin 29.1 pg (28.0-33.3); Mean Corpuscular Volume 88.1 fL (83.0-100.0); Monocytes % 5.3 %; Platelet Count 244 K/mcL (140-400); Red Blood Count 5.29 M/mcL (4.19-5.50); Red Cell Distribution Width 13.2 % (11.5-14.5); Segmented Neutrophils % 89.8 %; White Blood Count 11.1 K/mcL (4.3-11.1)
[2022-01-14 03:05] LABS: Lymphocytes # 0.5 K/mcL (0.6-4.6); Monocytes # 0.6 K/mcL (0.0-1.3)
[2022-01-14] MEDS: Piperacillin/Tazobactam 3.375 GM in 0.9 % Sodium Chloride Mini Bag 100 ML IVPB SCH ×3 (03:34→21:14)
[2022-01-14 03:35] LABS: BUN/Creatinine Ratio 14 (6-26); Blood Urea Nitrogen 16 mg/dL (8-23); Calcium 8.5 mg/dL (8.6-10.3); Carbon Dioxide 22 mEq/L (23-29); Chloride 103 mEq/L (98-107); Glucose 163 mg/dL (70-105); Magnesium 1.7 mg/dL (1.6-2.6); Osmolality,Calculated 283 (280-300); Phosphorous 3.7 mg/dL (2.7-4.5); Potassium 4.4 mEq/L (3.5-5.1); Sodium 134 mEq/L (136-145); eGFR For African Americans > 60 (> 60); eGFR For Non-African Americans > 60 (> 60)
[2022-01-14] MEDS: Ondansetron 4 MG/2 ML VIAL IVP PRN ×2 (06:42→13:16)
[2022-01-14] MEDS: 0.9 % Sodium Chloride 1,000 ML IVC SCH ×2 (08:45→19:16)
[2022-01-14] MEDS ORDERED: *HR* LORazepam 2 MG/ML VIAL IVP PRN (16:08)
[2022-01-14] MEDS: QUEtiapine Fumarate 25 MG TABLET GTUBE SCH (21:15)
[2022-01-15] MEDS: Acetaminophen IV 1,000 MG/100 ML BAG IVPB SCH ×4 (02:56→22:24)
[2022-01-15] MEDS: 0.9 % Sodium Chloride 1,000 ML IVC SCH (05:37)
[2022-01-15] MEDS: Piperacillin/Tazobactam 3.375 GM in 0.9 % Sodium Chloride Mini Bag 100 ML IVPB SCH ×3 (05:54→22:24)
[2022-01-15] MEDS ORDERED: D5% in 0.45% NACL w KCl 20 MEQ/1,000 ML MLS IVC SCH (09:30)
[2022-01-15 10:18] LABS: Basophils % 0.3 %; Eosinophils # 0.1 K/mcL (0.0-0.6); Eosinophils % 0.6 %; Hematocrit 44.5 % (37.5-50.1); Hemoglobin 14.5 g/dL (12.9-16.9); Immature Granulocytes % 0.2 % (0-4); Lymphocytes # 0.9 K/mcL (0.6-4.6); Lymphocytes % 9.8 %; Mean Corpuscular HGB Conc 32.6 g/dL (31.6-35.5); Mean Corpuscular Hemoglobin 28.7 pg (28.0-33.3); Mean Corpuscular Volume 88.1 fL (83.0-100.0); Mean Platelet Volume 9.9 fL (9.4-12.4); Monocytes # 0.8 K/mcL (0.0-1.3); Monocytes % 9.3 %; Neutrophils # 7.2 K/mcL (1.6-8.9); Platelet Count 237 K/mcL (140-400); Red Blood Count 5.05 M/mcL (4.19-5.50); Red Cell Distribution Width 13.6 % (11.5-14.5); Segmented Neutrophils % 79.8 %
[2022-01-15 10:38] LABS: BUN/Creatinine Ratio 14 (6-26); Blood Urea Nitrogen 15 mg/dL (8-23); Calcium 8.3 mg/dL (8.6-10.3); Carbon Dioxide 25 mEq/L (23-29); Chloride 104 mEq/L (98-107); Glucose 100 mg/dL (70-105); Magnesium 1.8 mg/dL (1.6-2.6); Osmolality,Calculated 283 (280-300); Potassium 3.6 mEq/L (3.5-5.1); Sodium 136 mEq/L (136-145); eGFR For African Americans > 60 (> 60); eGFR For Non-African Americans > 60 (> 60)
[2022-01-15] MEDS: *HR* Heparin 5,000 UNIT/ML VIAL SQ SCH ×3 (11:38→22:25)
[2022-01-15] MEDS ORDERED: Potassium Phosphate 44 MEQ in 0.9 % Sodium Chloride 250 ML IVPB ONE (15:22)
[2022-01-15] MEDS ORDERED: QUEtiapine Fumarate 25 MG TABLET PO SCH (21:00)
[2022-01-15] MEDS: QUEtiapine Fumarate 25 MG TABLET GTUBE SCH (22:25)
[2022-01-16] MEDS: Piperacillin/Tazobactam 3.375 GM in 0.9 % Sodium Chloride Mini Bag 100 ML IVPB SCH ×3 (06:51→20:37)
[2022-01-16] MEDS: *HR* Heparin 5,000 UNIT/ML VIAL SQ SCH ×3 (06:51→20:38)
[2022-01-16] MEDS: Acetaminophen IV 1,000 MG/100 ML BAG IVPB SCH (06:52)
[2022-01-16] MEDS: lisinopriL 10 MG TABLET PO SCH (07:52)
[2022-01-16] MEDS: Acetaminophen 325 MG TABLET PO SCH ×2 (11:56→18:15)
[2022-01-16] MEDS: Artificial Tears SOLN 15 ML BOTTLE BOTH EYES SCH ×2 (16:29→20:41)
[2022-01-16] MEDS: Ibuprofen 800 MG TABLET PO SCH (16:29)
[2022-01-16] MEDS: QUEtiapine Fumarate 25 MG TABLET GTUBE SCH (20:46)
[2022-01-17] MEDS: Ibuprofen 800 MG TABLET PO SCH ×2 (00:42→08:17)
[2022-01-17] MEDS: Acetaminophen 325 MG TABLET PO SCH ×2 (00:42→05:13)
[2022-01-17] MEDS: Piperacillin/Tazobactam 3.375 GM in 0.9 % Sodium Chloride Mini Bag 100 ML IVPB SCH (04:14)
[2022-01-17] MEDS: *HR* Heparin 5,000 UNIT/ML VIAL SQ SCH (05:14)
[2022-01-17 06:37] VITALS: BP 136/79; PULSE 78; TEMP 97.8; O2SAT 91
[2022-01-17] MEDS: lisinopriL 10 MG TABLET PO SCH (08:17)
[2022-01-17] MEDS: Artificial Tears SOLN 15 ML BOTTLE BOTH EYES SCH (08:18)
[2022-01-17 08:33] LABS: BUN/Creatinine Ratio 13 (6-26); Blood Urea Nitrogen 13 mg/dL (8-23); Carbon Dioxide 23 mEq/L (23-29); Chloride 105 mEq/L (98-107); Glucose 100 mg/dL (70-105); Osmolality,Calculated 284 (280-300); Phosphorous 3.2 mg/dL (2.7-4.5); Potassium 3.6 mEq/L (3.5-5.1); Sodium 137 mEq/L (136-145); eGFR For African Americans > 60 (> 60); eGFR For Non-African Americans > 60 (> 60)
== END 2022-01-17 13:29 | disposition home or self-care (01) | DRG 331 ==
LOC: SAMDAY 10:52 → 3ANU 12:13
PROVIDERS: ADMIT Surgery; ATTEND Surgery